=== PATIENT | male | born 1995 | race American Indian/Alaskan Native ===

== ENCOUNTER 2024-04-23 10:26 | Emergency (ER) | payer OTHER, SELFPAY ==
[2024-04-23 10:48] VITALS: BP 125/70; PULSE 77; RESP 16; TEMP 36.8; O2SAT 98; BMI 34.8
--- NOTE | 2024-04-23 12:21 | PC.NURSE ---
Laceration to left middle finger. Pt states it was with a cutting tool/knife that happened approx 2 hours ago. Pt states tdap is utd. Pt able to move all fingers. Bleeding controlled. Pt states he washed his hands right after incident.
[2024-04-23] MEDS: LIDOCAINE 1% 20 ML SUBCUT (13:12)
--- NOTE | 2024-04-23 13:34 | ED.LOWEXIN ---
HPI - Extremity Injury (Lower) <Stephania Peacock PA-C - Last Filed: 04/23/24 13:39> General Chief Complaint: Extremity Injury, Lower Stated Complaint: Left Finger Laceration Time Seen by Provider: 04/23/24 12:32 Source: patient Mode of arrival: Family Vehicle History of Present Illness HPI Narrative: Patient is a pleasant 28-year-old male presents to the emergency room department laceration to the left middle finger. He sustained it from a knife. He has no other further complaints. Patient right-hand dominant. Related Data Allergies Allergy/AdvReac Type Severity Reaction Status Date / Time No Known Drug Allergies Allergy Verified 04/23/24 10:53 Review of Systems <Stephania Peacock PA-C - Last Filed: 04/23/24 13:39> Musculoskeletal Comments: Laceration to the left middle finger. Patient History <Stephania Peacock PA-C - Last Filed: 04/23/24 13:39> Social History Smoking Status: Never smoker Smoking Status: Never smoker alcohol intake frequency: 0-2 drinks per day Substance Use Type: does not use Exam <Stephania Peacock PA-C - Last Filed: 04/23/24 13:39> Initial Vital Signs Initial Vital Signs: Vital Signs Temperature 98.3 F 04/23/24 10:48 Pulse Rate 77 04/23/24 10:48 Respiratory Rate 16 04/23/24 10:48 Blood Pressure 125/70 04/23/24 10:48 Pulse Oximetry 98 04/23/24 10:48 Oxygen Delivery Method Room Air 04/23/24 10:48 Reviewed Const General: cooperative, healthy appearing, comfortable, well developed, well groomed, No acute distress and No in distress Nutritional Appearance: average body habitus and well nourished Eyes General: Yes appearance normal, both eyes and all related structures Pupils: PERRL EOM: EOM intact bilaterally Skin General: no rashes or lesions noted and elasticity normal Wounds: wounds noted (Laceration to the left middle finger) Neuro General: patient alert, patient awake, patient oriented x3, oriented and gait normal Extrem Other: Range of motion, strength, pulses, cap refill preserved in the and lower extremities. Patient has a laceration to the distal aspect of the left middle finger. Laceration is 1 cm in length. The nailbed is not included in the injury. Psych Other: Appearance, mental status, speech, movement, mood, affect, attitude, thought process, thought content, judgment is within normal limits. <Rhonda Kenney DO - Last Filed: 04/24/24 08:12> Initial Vital Signs Initial Vital Signs: Vital Signs Temperature 98.3 F 04/23/24 10:48 Pulse Rate 77 04/23/24 10:48 Respiratory Rate 16 04/23/24 10:48 Blood Pressure 125/70 04/23/24 10:48 Pulse Oximetry 98 04/23/24 10:48 Oxygen Delivery Method Room Air 04/23/24 10:48 Procedures <Stephania Peacock PA-C - Last Filed: 04/23/24 13:39> Laceration Repair Laceration 1: Time of procedure: 13:37 Site: hand Side (If applicable): left Size (cm): 1 Description: linear Depth: simple, single layer Local Anesthetic: lidocaine 1% Amount of anesthesia used (mL): 1 Skin layer closed with: nylon Skin layer suture size: 5-0 Number of sutures: 1 Technique: running Scores <Stephania Peacock PA-C - Last Filed: 04/23/24 13:39> GCS Citation: 15 Course <Stephania Peacock PA-C - Last Filed: 04/23/24 13:39> Orders Ordered: Discontinued Medications Lidocaine HCl (Lidocaine 1% 20 Ml) 20 ml SUBCUT NOW ONE Stop: 04/23/24 12:36 Last Admin: 04/23/24 13:12 Dose: 20 ml Documented By: VANESSA Vital Signs Vital signs: Vital Signs - 8 hr 04/23/24 10:48 Temperature 98.3 F Pulse Rate 77 Respiratory Rate 16 Blood Pressure 125/70 Pulse Oximetry 98 Oxygen Delivery Method Room Air Reviewed <Rhonda Kenney DO - Last Filed: 04/24/24 08:12> Orders Ordered: Discontinued Medications Lidocaine HCl (Lidocaine 1% 20 Ml) 20 ml SUBCUT NOW ONE Stop: 04/23/24 12:36 Last Admin: 04/23/24 13:12 Dose: 20 ml Documented By: VANESSA Vital Signs Vital signs: Vital Signs - 8 hr 04/23/24 10:48 Temperature 98.3 F Pulse Rate 77 Respiratory Rate 16 Blood Pressure 125/70 Pulse Oximetry 98 Oxygen Delivery Method Room Air MDM - Extremity Injury (Lower) <Stephania Peacock PA-C - Last Filed: 04/23/24 13:39> MDM Narrative Medical decision making narrative: 28-year-old male who sustained a laceration to the distal aspect of the left middle finger. Tetanus within the last 10 years Laceration repair as above Telfa and Coban for dressing Patient discharged in stable condition Laceration repair education supportive therapy education, ED precautions Differential diagnosis; laceration to the left middle finger. Discharge Plan Departure Patient Disposition: Home Clinical Impression: Finger laceration Qualifiers: Encounter type: initial encounter Finger: middle finger Damage to nail status: without damage Foreign body presence: without foreign body Laterality: left Qualified Code(s): S61.213A - Laceration without foreign body of left middle finger without damage to nail, initial encounter Activity Restrictions/Additional Instructions: Stitches out in the next 7-10 days Elevate the finger Ibuprofen and Tylenol as needed Neosporin as wanted Keep the area covered and dry You can use the finger, you can shower, you can do normal things Telfa and Coban as your dressing Stitches come out in the walk-in clinic, your primary care doctor's office, urgent care, and the emergency room department. If you choose to use the emergency room department please come early in the morning around 7:00 a.m. so that you can get your stitches out. I placed a running stitch. There was only 2 knots. Referrals: ProviderFranky [Primary Care Provider] - Stand Alone Forms: Patient Portal/API ED Sign-out <Rhonda Kenney DO - Last Filed: 04/24/24 08:12> Cosign ED Attending Tiffany Attestation: I was available for consultation.
[2024-04-23 13:40] VITALS: BP 130/75; PULSE 70; RESP 19; O2SAT 99
== END 2024-04-23 13:42 | disposition home or self-care (01) ==
PROVIDERS: Emergency Provider Physician Assistant
DX: S61.213A Laceration without foreign body of left middle finger without damage to nail, initial encounter (principal); W26.0XXA Contact with knife, initial encounter
CPT/HCPCS: 12001; 99281; 99283

== ENCOUNTER 2024-05-26 09:59 | Emergency (ER) | payer OTHER, SELFPAY ==
[2024-05-26 10:03] VITALS: BP 140/90; PULSE 58; RESP 18; TEMP 36.8; O2SAT 97; BMI 33.5
--- NOTE | 2024-05-26 11:50 | DI.RAD.S_ITS ---
PROCEDURE: XR HAND RT MIN 3V INDICATIONS: right 1st metacarpal pain / abrasion after fall TECHNIQUE: 3 views of the hand(s) acquired. COMPARISON: None. FINDINGS: Bones: No fractures or dislocations. Carpal bones are normally aligned. No suspicious bony lesions. Soft tissues: No suspicious soft tissue calcifications. IMPRESSION: No acute bony abnormality. Dictated by: Jordon Dodd M.D. on 05/26/2024 at 12:19 Approved by: Jordon Dodd M.D. on 05/26/2024 at 12:20
--- NOTE | 2024-05-26 11:50 | DI.CT.S_ITS ---
PROCEDURE: CT HEAD/BRAIN WO CON INDICATIONS: fall from 8ft walter, left facial abrasion, L side HESTER TECHNIQUE: Noncontrast 4.5 mm thick angled axial sections acquired from the foramen magnum to the vertex, with coronal and sagittal reformats. For radiation dose reduction, the following was used: automated exposure control, adjustment of mA and/or kV according to patient size. COMPARISON: None. FINDINGS: Image quality: Diagnostic. CSF spaces: Basal cisterns are patent. No extra-axial fluid collections. Ventricles are normal in size and shape. Brain: No midline shift. No intracranial masses or hemorrhage. Mercer-white matter interface is normal. Skull and face: Calvarium and visualized facial bones are intact, without suspicious lesions. Sinuses: Visualized sinuses and mastoids are clear. IMPRESSION: No acute intracranial pathology. Dictated by: Abdirahman Hernandez M.D. on 05/26/2024 at 12:35 Approved by: Abdirahman Hernandez M.D. on 05/26/2024 at 12:36
--- NOTE | 2024-05-26 11:52 | ED.FALL ---
HPI - Fall <Radha Cabrera PA-C - Last Filed: 05/26/24 13:27> General Chief Complaint: Fall Stated Complaint: fell off a ladder 8ft Time Seen by Provider: 05/26/24 11:38 History of Present Illness HPI Narrative: Mr. Ibarra is a pleasant 28-year-old male who is otherwise healthy that presents to the emergency department for a fall off an 8 ft ladder. 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 The patient's upper body was inside the plane when he fell down. He hit the left side of his face on the inside of the plane window and also his right hand. The patient landed on the ground with the majority of his weight landing on the right foot. He then sat backwards. Patient is unsure if he lost consciousness because he states ?it all happened too fast?. At this time he reports mild pain of the right hand where the abrasion is overlying his 1st metacarpal, and a left-sided mild headache and pain overlying left facial abrasion. He is up-to-date on his Tdap. He denies any nausea or vomiting after the event, visual disturbance, chest pain, shortness of breath, ankle pain, foot pain, back pain, neck pain, abdominal pain, chest pain. Related Data Allergies Allergy/AdvReac Type Severity Reaction Status Date / Time No Known Drug Allergies Allergy Verified 05/26/24 10:07 Review of Systems <Radha Cabrera PA-C - Last Filed: 05/26/24 13:27> Review of Systems ROS Unobtainable: All systems reviewed & are unremarkable except as noted in HPI and below Patient History <Radha Cabrera PA-C - Last Filed: 05/26/24 13:27> Social History Smoking Status: Never smoker Smoking Status: Never smoker alcohol intake frequency: 0-2 drinks per day Substance Use Type: does not use Exam <Radha Cabrera PA-C - Last Filed: 05/26/24 13:27> Narrative Exam Narrative: GENERAL: 28 year old patient appears stated age. Well-developed patient, in no acute distress. HEAD: Atraumatic. Normocephalic. Superficial abrasion overlying left zygomatic arch. EYES: PERRL. Extraocular motions intact. No scleral icterus. No injection or drainage. ENT: Nose without bleeding, purulent drainage. Ears without hemotympanum. Throat without erythema, tonsillar hypertrophy or exudate. Airway patent. NECK: Trachea midline. Cervical ROM intact. No midline cervical tenderness. CARDIOVASCULAR: Regular rate and rhythm. RESPIRATORY: ?Nonlabored respirations. ?Speaking in clear, full sentences. ?Clear to auscultation. Breath sounds equal bilaterally. No wheezes, rales, or rhonchi. ? GASTROINTESTINAL: Abdomen soft, non-tender, nondistended. EXTREMITIES: Mild tenderness to palpation of the right 1st metacarpal with overlying abrasion. Full range of motion and sensation intact to light touch in the distribution of the median, radial, ulnar nerve. No wrist pain. No tenderness to palpation of the remainder of the appendicular skeleton. BACK: Nontender without deformity or crepitance. No flank tenderness. NEURO: AOx3. ?Clear speech. ?Moves all 4 extremities appropriately. No facial asymmetry. Steady gait. SKIN: Mild abrasion on right hand and left facial cheek. Initial Vital Signs Initial Vital Signs: Vital Signs Temperature 98.2 F 05/26/24 10:03 Pulse Rate 58 L 05/26/24 10:03 Respiratory Rate 18 05/26/24 10:03 Blood Pressure 140/90 05/26/24 10:03 Pulse Oximetry 97 05/26/24 10:03 Oxygen Delivery Method Room Air 05/26/24 10:03 <Vince Malone MD - Last Filed: 05/30/24 14:55> Initial Vital Signs Initial Vital Signs: Vital Signs Temperature 98.2 F 05/26/24 10:03 Pulse Rate 58 L 05/26/24 10:03 Respiratory Rate 18 05/26/24 10:03 Blood Pressure 140/90 05/26/24 10:03 Pulse Oximetry 97 05/26/24 10:03 Oxygen Delivery Method Room Air 05/26/24 10:03 Scores <Radha Cabrera PA-C - Last Filed: 05/26/24 13:27> Indonesian CT Head Rule Age <16 years old: No Patient on blood thinners: No Seizure after injury: No Exclusion: Patient NOT Excluded, Proceed to next steps GCS < 15 at 2 hr post trauma: No Suspected open or depressed skull fracture: No Any sign of basilar skull fracture (hemotympanum, raccoon eyes, Jaramillo's sign, CSF lata-/rhinorrhea): No Two or more episodes of vomiting: No Age greater or equal to 65 years: No Retrograde amnesia to the event greater or equal to 30 min: No Dangerous Mechanism (pedestrian vs. mv, occupant ejected from mv, fall from >3 ft or > 5 stairs): Yes Recommendation: Consider CT. The Indonesian Head CT Rule cannot rule out need for Imaging. <Vince Malone MD - Last Filed: 05/30/24 14:55> Indonesian CT Head Rule Exclusion: Patient NOT Excluded, Proceed to next steps Recommendation: Consider CT. The Indonesian Head CT Rule cannot rule out need for Imaging. Course <Radha Cabrera PA-C - Last Filed: 05/26/24 13:27> Orders Ordered: Discontinued Medications Acetaminophen (Acetaminophen 325 Mg Tablet) 975 mg PO NOW ONE Stop: 05/26/24 11:51 Last Admin: 05/26/24 11:57 Dose: 975 mg Documented By: SHANNA Bacitracin (Bacitracin Oint 0.9 Gm Pckt) 1 applic TOP NOW ONE Stop: 05/26/24 11:55 Last Admin: 05/26/24 13:26 Dose: 1 applic Documented By: MPO Vital Signs Vital signs: Vital Signs - 8 hr 05/26/24 10:03 Temperature 98.2 F Pulse Rate 58 L Respiratory Rate 18 Blood Pressure 140/90 Pulse Oximetry 97 Oxygen Delivery Method Room Air <Vince Malone MD - Last Filed: 05/30/24 14:55> Orders Ordered: Discontinued Medications Acetaminophen (Acetaminophen 325 Mg Tablet) 975 mg PO NOW ONE Stop: 05/26/24 11:51 Last Admin: 05/26/24 11:57 Dose: 975 mg Documented By: RLS Bacitracin (Bacitracin Oint 0.9 Gm Pckt) 1 applic TOP NOW ONE Stop: 05/26/24 11:55 Last Admin: 05/26/24 13:26 Dose: 1 applic Documented By: MPO Vital Signs Vital signs: Vital Signs - 8 hr 05/26/24 10:03 Temperature 98.2 F Pulse Rate 58 L Respiratory Rate 18 Blood Pressure 140/90 Pulse Oximetry 97 Oxygen Delivery Method Room Air MDM - Fall <Radha Cabrera, PA-C - Last Filed: 05/26/24 13:27> Imaging Data Right Hand X-Ray: My Impression: On my independent interpretation of right hand x-ray, no gross fracture of 1st metacarpal. Radiologist's Impression: PROCEDURE: XR HAND RT MIN 3V INDICATIONS: right 1st metacarpal pain / abrasion after fall TECHNIQUE: 3 views of the hand(s) acquired. COMPARISON: None. FINDINGS: Bones: No fractures or dislocations. Carpal bones are normally aligned. No suspicious bony lesions. Soft tissues: No suspicious soft tissue calcifications. IMPRESSION: No acute bony abnormality. CT scan - head: Radiologist's Impression: PROCEDURE: CT HEAD/BRAIN WO CON INDICATIONS: fall from 8ft walter, left facial abrasion, L side HESTER TECHNIQUE: Noncontrast 4.5 mm thick angled axial sections acquired from the foramen magnum to the vertex, with coronal and sagittal reformats. For radiation dose reduction, the following was used: automated exposure control, adjustment of mA and/or kV according to patient size. COMPARISON: None. FINDINGS: Image quality: Diagnostic. CSF spaces: Basal cisterns are patent. No extra-axial fluid collections. Ventricles are normal in size and shape. Brain: No midline shift. No intracranial masses or hemorrhage. Mercer-white matter interface is normal. Skull and face: Calvarium and visualized facial bones are intact, without suspicious lesions. Sinuses: Visualized sinuses and mastoids are clear. IMPRESSION: No acute intracranial pathology. [facility] Narrative Medical decision making narrative: Healthy 28-year-old male presents to the emergency department after falling off a ladder from approximately 8 ft height. He now has pain and abrasion of the right 1st metacarpal and abrasion on the left face with mild left-sided headache. No snuffbox tenderness. TDAP UTD. Indonesian head CT suggests medium risk given fall from height greater than 3 ft. Differential diagnosis includes but is not limited to axial fracture, right ankle or calcaneal fracture, abrasion, contusion, headache, concussion, traumatic brain injury, etc. On physical exam patient is in no acute distress, nontoxic appearing. No focal neurologic deficits. Two small superficial abrasions. No pain to palpation of the entire spine or the bilateral ankles or heels. After shared decision-making with patient, we will proceed with right hand x-ray and head CT. We will treat pain with Tylenol and place bacitracin on wounds. Patient's imaging reveals negative right hand x-ray and negative head CT. Discussed signs and symptoms of concussion with the patient and recommended mental rest. Advised Motrin/Tylenol if needed for pain. Provided with note for light duty until cleared by his PCP. All questions answered, patient stable for discharge. Discharge Plan Departure Patient Disposition: Home Clinical Impression: Fall from height of greater than 3 feet Abrasion of face Qualifiers: Encounter type: initial encounter Qualified Code(s): S00.81XA - Abrasion of other part of head, initial encounter Abrasion of hand, right Qualifiers: Encounter type: initial encounter Qualified Code(s): S60.511A - Abrasion of right hand, initial encounter Instructions: DI for Concussion Activity Restrictions/Additional Instructions: Avoiding highly stimulating activities and even TV or computers may be helpful in minimizing your symptoms of headache after head injury. Avoid activities that will put you at risk for another head injury for at least a week. You can take tylenol or motrin for headache. Return for worsening or persistent symptoms. Please keep abrasions clean, covered with antibiotic ointment. Please follow up with your primary care doctor within the next 2-3 days. Return to the emergency department for any new or worsening symptoms, or any other concerns. Thank you for letting me participate in your care, Radha Cabrera PA-C Referrals: ProviderFranky [Primary Care Provider] - Stand Alone Forms: Patient Portal/API/Survey, Work Release Note ED Sign-out <Vince Malone MD - Last Filed: 05/30/24 14:55> Cosign ED Attending [facility] Attestation: I was immediately available in the department for consultation. ?This documentation has been reviewed and I agree with assessment and plan. Supervised by Vince Malone MD
[2024-05-26] MEDS: ACETAMINOPHEN 325 MG TABLET 975 MG PO (11:57)
[2024-05-26] MEDS: BACITRACIN OINT 0.9 GM PCKT 1 APPLIC TOP (13:26)
[2024-05-26 13:31] VITALS: BP 139/85; PULSE 60; RESP 20; O2SAT 100
== END 2024-05-26 13:33 | disposition home or self-care (01) ==
PROVIDERS: Emergency Provider Physician Assistant
DX: S00.81XA Abrasion of other part of head, initial encounter (principal); S60.511A Abrasion of right hand, initial encounter; R51.9 Headache, unspecified; W11.XXXA Fall on and from ladder, initial encounter; W17.89XA Other fall from one level to another, initial encounter
CPT/HCPCS: 70450; 73130; 99284

== ENCOUNTER 2024-07-12 09:32 | Emergency (ER) | payer OTHER, SELFPAY ==
[2024-07-12 09:39] VITALS: BP 141/92; PULSE 86; PULSE 97; RESP 16; TEMP 36.9; O2SAT 100; O2SAT 97; BMI 27.1
--- NOTE | 2024-07-12 09:50 | ED.GENADULT ---
HPI - General Adult General Chief complaint: Upper Respiratory Symptoms Stated complaint: Chest is burning up , chest cold Time Seen by Provider: 07/12/24 09:34 Source: patient, RN notes reviewed and old records reviewed Mode of arrival: Ambulatory Limitations: no limitations History of Present Illness HPI narrative: 28-year-old male no reported medical issues who presents with complaint of 3 or 4 days of subjective fevers, nasal congestion, cough and developed some burning on his substernal region in his chest. Patient states he has not had any ear pain no sore throat. States he feels a little short of breath. States he has had a cough has been mostly nonproductive but occasional clear phlegm with a little bit of pink tinge. Patient states no nausea or vomiting. He has had decreased appetite. He has had little bit of diarrhea initially but that has improved. No urinary symptoms. No rash or skin changes no swelling of extremities. Patient states no daily medications. No prior surgeries. No known drug allergies. Denies any regular tobacco, alcohol or recreational drugs. Related Data Allergies Allergy/AdvReac Type Severity Reaction Status Date / Time No Known Drug Allergies Allergy Verified 05/26/24 10:07 Review of Systems Review of Systems ROS Unobtainable: All systems reviewed & are unremarkable except as noted in HPI and below Patient History Social History Smoking Status: Never smoker Smoking Status: Never smoker alcohol intake frequency: 0-2 drinks per day Exam Narrative Exam Narrative: GEN: well nourished, well appearing male, alert and oriented x [default value], patient appears to be in my distress. HEENT: Atraumatic, pupils are equal round reactive to light, extraocular movements are intact, bilateral clear rhinorrhea, TMs are clear with no fluid, there is no conjunctival pallor. Throat is clear without any exudates, erythema, tonsillar enlargement or uvular deviation, positive for postnasal drip. HEART: Regular rate and rhythm without murmur, clicks, rubs. No edema bilateral lower extremities LUNGS:Lungs clear to auscultation, no wheezes, rales, crackles, chest moves symmetrically. No tachypnea, no accessory muscle use. Speaks in full sentences ABD:bowel sounds normal, soft, non-tender, no guarding, rebound, rigidity, no masses noted, no hepatosplenomegaly MSCL: full range of motion, normal gait NEURO:CN 2-12 intact, sensation normal. Initial Vital Signs Initial Vital Signs: Vital Signs Temperature 98.5 F 07/12/24 09:39 Pulse Rate 86 07/12/24 09:39 Respiratory Rate 16 07/12/24 09:39 Blood Pressure 141/92 H 07/12/24 09:39 Pulse Oximetry 100 07/12/24 09:39 Oxygen Delivery Method Room Air 07/12/24 09:39 Course Orders Ordered: ED Orders 07/12/24 09:51 Chest [XR chest 2V] Stat Vital Signs Vital signs: Vital Signs - 8 hr 07/12/24 09:39 07/12/24 09:39 07/12/24 10:00 Temperature 98.5 F Pulse Rate 86 97 H 89 Respiratory Rate 16 Blood Pressure 141/92 H Pulse Oximetry 100 97 96 Oxygen Delivery Method Room Air Medical Decision Making Lab Data Labs: Lab Results 07/12/24 Range/Units 09:30 SARS-CoV-2 (PCR) Negative (Negative) Influenza A (RT-PCR) Flu a positive H (NEGATIVE) Influenza B (RT-PCR) Flu b negative (NEGATIVE) RSV (PCR) Negative (Negative) Imaging Data Chest x-ray: Radiologist's Impression: Close Chest X-Ray (Signed) HernandezAbdirahman - 07/12/[address] (Signed) Abdirahman Hernandez - 05/26/24 Hand X-Ray (Signed) Jordon Dodd - 05/26/24 Launch?[address] [address] XRay Report Signed Patient: Escobar Ibarra MR#: [id number] : 1995 Acct:[id number] Age/Sex: 28 / M Date of Service: 07/12/24 Loc: ED Accession Number: [id number] Procedure: XR chest 2V Ordering Provider: Lorraine Cadet D.O. PROCEDURE: XR CHEST 2V INDICATIONS: cold symptoms, burning chest TECHNIQUE: 2 views of the chest were acquired. COMPARISON: None. FINDINGS: Surgical changes and devices: None. Lungs and pleura: Lungs are clear. No pleural effusions or pneumothorax. Mediastinum: Mediastinal contours are normal. Heart size is normal. Bones and chest wall: No suspicious bony abnormalities. Soft tissues appear unremarkable. IMPRESSION: No acute cardiopulmonary abnormality is seen. Dictated by: Abdirahman Hernandez M.D. on 07/12/2024 at 10:43 Approved by: Abdirahman Hernandez M.D. on 07/12/2024 at 10:43 [facility] Narrative Medical decision making narrative: Nontoxic-appearing male with nasal congestion subjective fevers but does note a little bit of upper chest discomfort. Vitals are appropriate here in the department. COVID/influenza/RSV swab is negative. Chest x-ray is negative Patient was outside the window for Tamiflu. He is overall well-appearing and nontoxic felt appropriate for discharge. Discharge Plan Departure Patient Disposition: Home Clinical Impression: Influenza A Instructions: DI for Influenza -- Adult Activity Restrictions/Additional Instructions: Follow up with your physician as needed. You have tested positive for influenza A this is a viral illness that lasts 7-10 days. You can take acetaminophen and/or ibuprofen as needed. Please return for worsening symptoms increasing shortness of breath or chest pain, lightheadedness or passing out, new swelling in your extremities, persistent vomiting other new or concerning changes. Referrals: ProviderFranky [Primary Care Provider] - Stand Alone Forms: Patient Portal/API/Survey, Work Release Note
[2024-07-12 10:00] VITALS: PULSE 89; O2SAT 96
[2024-07-12 10:25] LABS: COVID-19 CEPHEID 4-PLEX PCR Negative (Negative); Influenza A - CEPHEID Flu A POSITIVE (NEGATIVE); Influenza B - CEPHEID Flu B NEGATIVE (NEGATIVE); Respiratory Syncytial Virus Negative (Negative)
[2024-07-12 10:31] VITALS: PULSE 99; O2SAT 93
== END 2024-07-12 11:01 | disposition home or self-care (01) ==
PROVIDERS: Emergency Provider Emergency Medicine; Referring Provider Emergency Medicine
DX: J10.1 Influenza due to other identified influenza virus with other respiratory manifestations (principal)
CPT/HCPCS: 0241U; 71046; 99281; 99283